=== PATIENT | male | born 1975 | race Caucasian/White ===

== ENCOUNTER 2016-08-25 20:12 | Emergency (ER) | payer OTHER ==
[2016-08-25 22:33] VITALS: BP 149/94
[2016-08-25] MEDS ORDERED: Ketorolac INJ* 60 MG/2 ML VIAL IM ONE (22:44)
--- NOTE | 2016-08-25 22:55 | UC ---
[facility] Trauma HPI - HPI Summary HPI Summary: The patient comes in today for: 1. Right sided pain: Onset: 3 days ago. Palliative/provocative: Taking a big breath, laughing, coughing sneezing, all make it worse. Quality: Sharp. Region: Right lateral chest. Severity: 12/08 Time: Constant. Associated symptoms: Event: He was walking along an incline and slipped. He landed on the side of the flat screen TV which jammed up into the left lateral chest. He felt a lot of pain at that time--"knocking the wind out of me." He "could not do anything at that time--I had to catch my breath." * - History Of Current Complaint Chief Complaint: UCTrauma Stated Complaint: FLANK,BACK PAIN FROM FALL,DIFFICULTY BREATHING Time Seen by Provider: 08/25/16 22:40 Hx Obtained From: Patient, Family/Supervisor Title - Allergies/Home Medications Allergies/Adverse Reactions: Allergies Allergy/AdvReac Type Severity Reaction Status Date / Time No Known Allergies Allergy Verified 08/25/16 22:33 Home Medications: Home Medications Acetaminophen 1,000 mg PO PRN 08/25/16 [History] PMH/Surg Hx/FS Hx/Imm Hx Previously Healthy: Yes Endocrine History Of: Denies: Diabetes, Thyroid Disease, Hyperthyroidism, Hypothyroidism, Dyslipidemia Cardiovascular History Of: Denies: Cardiac Disorders, Hypertension, Pacemaker/ICD, Myocardial Infarction , Congestive Heart Failure, Atrial Fibrillation, Deep Vein Thrombosis, Bleeding Disorders Respiratory History Of: Denies: COPD, Asthma, Bronchitis, Pneumonia, Pulmonary Embolism GI/ History Of: Denies: Gastroesophageal Reflux, Ulcer, Gastrointestinal Bleed, Gall Bladder Disease, Kidney Stones, Diverticulitis, Renal Disease, Urosepsis Neurological History Of: Denies: TIA, CVA, Dementia, Seizures, Migraine Psychological History Of: Denies: Anxiety, Depression, Bipolar Disorder, Schizophrenia, Post Traumatic Stress Disorder Cancer History Of: Denies: Lung Cancer, Colorectal Cancer, Breast Cancer, Prostate Cancer, Cervical Cancer Other History Of: Negative For: HIV, Hepatitis B, Hepatitis C, Anticoagulant Therapy - Surgical History Surgical History: Yes Surgery Procedure, Year, and Place: KNEE SURGERIES (TWO ON LEFT, ONE ON RIGHT) - Family History Known Family History: Positive: Cardiac Disease Negative: Hypertension, Diabetes - Social History Occupation: Employed Full-time Alcohol Use: Occasionally Substance Use Type: None Smoking Status (MU): Never Smoked Tobacco Review of Systems Constitutional: Negative Skin: Negative Eyes: Negative ENT: Negative Respiratory: Negative Cardiovascular: Negative Gastrointestinal: Negative Genitourinary: Negative Musculoskeletal: Arthralgia, Myalgia All Other Systems Reviewed And Are Negative: Yes Physical Exam Triage Information Reviewed: Yes Appearance: Well-Appearing, Well-Nourished, Pain Distress - when he sits quietly , he is OK, but when he moves, he grimaces and moves slowly. Vital Signs: Initial Vital Signs Temp 97.1 F 08/25/16 22:24 Pulse 69 08/25/16 22:24 Resp 18 08/25/16 22:24 BP 149/94 08/25/16 22:24 Pulse Ox 100 08/25/16 22:24 Vital Signs Reviewed: Yes Eyes: Positive: Conjunctiva Clear. Negative: Discharge ENT: Positive: Hearing grossly normal. Negative: Pharyngeal erythema, Nasal congestion, Nasal drainage, TM bulging, TM dull, TM red, Tonsillar swelling, Tonsillar exudate Dental: Negative: Gross Decay/Caries @, Dental Fracture @ Neck: Positive: Supple, Nontender, No Lymphadenopathy. Negative: Nuchal Rigidity Respiratory: Positive: Lungs clear, No respiratory distress, No accessory muscle use. Negative: Chest non-tender - He has tenderness to palpation of his lateral right chest. There is no subcutaneous emphysema., Crackles, Rhonchi Cardiovascular: Positive: RRR, No Murmur Abdomen Description: Positive: Nontender, No Organomegaly, Soft. Negative: Distended, Guarding Musculoskeletal: Positive: Strength Intact, ROM Intact Neurological: Positive: Alert, Muscle Tone Normal Psychological: Positive: Normal Response To Family, Age Appropriate Behavior, Consolable Skin: Negative: rashes, breakdown Diagnostics - Radiology No standard instances Xray Interpretation: Positive (See Comments) - IMPRESSION: NONDISPLACED FRACTURE OF THE RIGHT SEVENTH RIB, WITHOUT PNEUMOTHORAX. Radiology Interpretation Completed By: Radiologist [place] Trauma Course/Dx - Differential Dx/Diagnosis Provider Diagnoses: high blood pressure. Non-displaced fracture of the 7th right rib. Discharge - Discharge Plan Condition: Stable Disposition: HOME Prescriptions: Hydrocodone-Acetaminophen [Hydrocodone/Acetaminophen 10-325 mg] 1 - 2 tab PO QID PRN #20 tab MDD 4 PRN Reason: Pain Hydrocodone-Acetaminophen [Hydrocodone/Acetaminophen 10-325 mg] 1 - 2 tab PO QID PRN #20 tab MDD 4 PRN Reason: Pain Naproxen [Naproxen 500 MG TABS] 500 mg PO BID PRN #40 tab PRN Reason: Pain Forms: *Work Release Additional Instructions: Please see your primary care provider in a week to see how well you are doing. If you get worse, please be seen sooner.
--- NOTE | 2016-08-25 23:02 | RAD ---
HISTORY: Right rib pain after chest wall trauma COMPARISONS: None VIEWS: 5, Frontal view of the chest with frontal and oblique views of the right hemithorax. FINDINGS: There is nondisplaced fracture of the right seventh rib. There is no appreciable pneumothorax. IMPRESSION: NONDISPLACED FRACTURE OF THE RIGHT SEVENTH RIB, WITHOUT PNEUMOTHORAX.
[2016-08-25] MEDS ORDERED: HYDROcodone/ACETAMIN 5-325 MG* 1 TAB PO ONE (23:12)
== END 2016-08-25 23:38 | disposition home or self-care (01) ==
LOC: UCEAST 20:12
DX: S22.31XA Fracture of one rib, right side, initial encounter for closed fracture (principal); W01.198A Fall on same level from slipping, tripping and stumbling with subsequent striking against other object, initial encounter; Y93.9 Activity, unspecified; Y92.9 Unspecified place or not applicable; R03.0 Elevated blood-pressure reading, without diagnosis of hypertension
CPT/HCPCS: 99202; G0463; J1885